=== PATIENT | female | born 1950 | race Caucasian/White ===

== ENCOUNTER 2021-08-03 12:46 | Emergency (ER) | payer MEDICARE | END 2021-08-03 14:13 | disposition home or self-care (01) | LOC: EDSEX 12:46 → MADERS 12:46 | DX: S61.411A Laceration without foreign body of right hand, initial encounter (principal); S70.12XA Contusion of left thigh, initial encounter; I10 Essential (primary) hypertension; E78.5 Hyperlipidemia, unspecified; W19.XXXA Unspecified fall, initial encounter; Y92.098 Other place in other non-institutional residence as the place of occurrence of the external cause ==